=== PATIENT | female | born 1975 | race Caucasian/White ===

== ENCOUNTER 2021-07-12 07:30 | Outpatient (RCR) | payer OTHER, SELFPAY ==
--- NOTE | 2021-07-12 07:49 | PTOPEVAL ---
Thank you for referring Patricia Wilks to [facility].? The patient is scheduled to be seen for therapy? __3__x/week for 12 visits. Please review, sign, date and return this plan of care JEANNETTE. I agree with and certify that the following plan of care is medically necessary. Referring Physician Date Admitting Provider: Attending Provider: Jian Parker, MD Referring Provider: *PT Outpatient Evaluation Start: 07/12/21 06:53 Freq: Status: Active Protocol: Document 07/12/21 06:53 JAVAN (Rec: 07/12/21 07:47 JAVAN [email or web address]) Therapy Assessment Status Assessment Status Assessment Status Evaluation Evaluation Information Problem Diagnosis left shoulder pain Onset 09/22/20 Subjective Information Pt. reports that she developed Query Text:As Reported By Patient/ pain about 2 years ago Family initially. She reports it started while shoveling snow. She reports that her shoulder pain is located at the shoulder blade. She describes and ache that radiates through the shoulder joint and makes the arm feel week. She describes elbow pain in the area of the lateral left elbow as well. She states that she also has numbness in the 2nd and 3rd digits as well. She reports that she does drop things frequently. She reports no hx of neck problems . She did recieve an injection into the shoulder which eased the pain in her entire arm, but it has returned in the past week. She reports that she only sleeps 3 hours on average. She right hand dominant. 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 Her goal is to reduce her pain and weakness. Pain Assessment Timing of Pain Assessment Timing of Pain Assessment Pre-Treatment Pain Scale Pain Scale Used Numeric (1
== END 2021-07-16 10:06 | disposition home or self-care (01) ==
LOC: CHSPT 07:30
PROVIDERS: Visit Provider Orthopaedic Surgery
DX: M79.10 Myalgia, unspecified site (principal); M25.512 Pain in left shoulder; M77.12 Lateral epicondylitis, left elbow; G56.02 Carpal tunnel syndrome, left upper limb
CPT/HCPCS: 97014; 97110; 97140; 97161; G0283